=== PATIENT | male | born 1970 | race Caucasian/White ===

== ENCOUNTER 2023-11-29 07:37 | Emergency (ER) | payer OTHER ==
[~2023-11-29] VITALS: Ht 170.2 cm; Wt 60.5 kg
[~2023-11-29 07:37] MED LIST: NOR10T
[2023-11-29 07:38] VITALS: BP 123/74; RESP 20; O2SAT 99
[2023-11-29 07:51] LABS: Hematocrit 40.5 % (41.0-53.0); Hemoglobin 13.6 g/dL (13.5-17.5); Mean Corpuscular Hemoglobin 31.6 pg (28.0-32.0); Mean Corpuscular Hgb Conc. 33.6 g/dL (32.0-36.0); Mean Corpuscular Volume 93.9 fL (80.0-100.0); Red Blood Cells 4.31 10^6/uL (4.5-5.90); Red Cell Distribution Width 13.2 % (11.8-14.3); White Blood Cell 6.7 10^3/uL (4.4-10.8)
[2023-11-29 08:04] VITALS: PULSE 90
[2023-11-29 08:04] LABS: Blast Cells 0; Eosinophils % (manual) 0 (0-7); Metamyelocytes % 0; Myelocytes % 0; Promyelocytes % 0; Reactive Lymphocytes 0
[2023-11-29 08:08] LABS: INR 0.95 (0.9-1.15); Partial Thromboplastin Time 25.3 SEC (24.5-34.5)
[2023-11-29 08:46] LABS: Alanine Aminotransferase 93 U/L (7-40); Albumin 4.3 g/dL (3.2-4.8); Alkaline Phosphatase 58 U/L (46-116); Anion Gap 6 (5-15); Aspartate Aminotransferase 42 U/L (13-40); BUN/Creatinine Ratio 12.6 (10.0-20.0); Blood Urea Nitrogen 11 mg/dL (9-23); Calcium 9.2 mg/dL (8.7-10.4); Carbon Dioxide 26 mmol/L (20-30); Chloride 107 mmol/L (98-107); Glucose 104 mg/dL (74-106); Potassium 4.3 mmol/L (3.5-5.1); Sodium 139 mmol/L (136-145)
[2023-11-29 08:47] LABS: Bilirubin, Total 0.5 mg/dL (0.2-1.0); Total Protein 7.2 g/dL (5.7-8.2)
[2023-11-29 10:23] LABS: Band Neutrophils % (manual) 2; Basophils % (manual) 1 (0.0-2.0); Lymphocytes % (manual) 22 (10.0-50.0); Monocytes % (manual) 18 (0-12)
[2023-11-29 10:24] LABS: Platelet Estimate Adequate
[2023-11-29 11:13] LABS: Urine Epithelial Cast None Seen /hpf (<5)
[2023-11-29 11:44] LABS: Urine Bacteria NONE SEEN /hpf (None Seen); Urine Blood Negative /uL (Negative); Urine Clarity Clear (Clear); Urine Color Yellow (Yellow); Urine Mucus FEW (None Seen); Urine Protein, UAD Negative (Negative); Urine Specific Gravity 1.029 (1.001-1.035); Urine WBC 2 /hpf (0 - 3)
== END 2023-11-29 20:00 | disposition left against medical advice (07) ==
LOC: EDBD 07:37 → ER 07:37
DX: F12.10 Cannabis abuse, uncomplicated (principal); R06.00 Dyspnea, unspecified; J44.9 Chronic obstructive pulmonary disease, unspecified; F17.210 Nicotine dependence, cigarettes, uncomplicated
CPT/HCPCS: 36415; 80053; 81001; 84484; 85007; 85027; 85610; 85730; 93005

== ENCOUNTER 2024-04-23 12:36 | Emergency (ER) | payer OTHER ==
[~2024-04-23] VITALS: Ht 170.2 cm; Wt 61.4 kg
[2024-04-23 13:37] LABS: Basophils # (auto) 0.2 10 ^3/uL (0-0.2); Eosinophils # (auto) 0.2 10 ^3/uL (0-0.8); Eosinophils % (auto) 2.9 % (0.0-7.0); Hematocrit 45.4 % (41.0-53.0); Hemoglobin 15.8 g/dL (13.5-17.5); Lymphocytes # (auto) 1.4 10 ^3/uL (0.4-5.4); Lymphocytes % (auto) 25.8 % (10.0-50.0); Mean Corpuscular Hemoglobin 32.2 pg (28.0-32.0); Mean Corpuscular Hgb Conc. 34.8 g/dL (32.0-36.0); Mean Corpuscular Volume 92.6 fL (80.0-100.0); Monocytes # (auto) 0.9 10 ^3/uL (0-1.3); Monocytes % (auto) 15.7 % (0.0-12.0); Neutrophils # (auto) 2.9 10 ^3/uL (1.6-8.6); Neutrophils % (auto) 51.6 % (37.0-80.0); Nucleated Red Blood Cells % 0.1 %; Red Cell Distribution Width 13.7 % (11.8-14.3); White Blood Cell 5.6 10^3/uL (4.4-10.8)
[2024-04-23 13:45] LABS: Chloride 107 mmol/L (98-107); Potassium 3.7 mmol/L (3.5-5.1); Sodium 140 mmol/L (136-145)
[2024-04-23 13:46] LABS: Anion Gap 6 (5-15); Calcium 9.8 mg/dL (8.5-10.1); Carbon Dioxide 27 mmol/L (20-30)
[2024-04-23 13:49] LABS: Urine Bacteria None Seen /hpf (None Seen)
[2024-04-23 13:51] LABS: Glucose 106 mg/dL (74-106)
[2024-04-23 13:52] LABS: BUN/Creatinine Ratio 5.8 (10.0-20.0); Blood Urea Nitrogen 6 mg/dL (9-23)
[2024-04-23 14:01] LABS: Blood Alcohol 300.4 mg/dL (<10)
[2024-04-23 14:06] LABS: Urine Blood Negative /uL (Negative); Urine Clarity Clear (Clear); Urine Color Light-Yellow (Yellow); Urine Protein, UAD TRACE (Negative); Urine Specific Gravity 1.006 (1.001-1.035); Urine Urobilinogen Normal (Negative); Urine WBC 1 /hpf (0 - 3); Urine pH 5.5 (5.0-9.0)
[2024-04-23 14:13] LABS: Amphetamine Screen, Urine Neg (NEGATIVE); Barbiturate Scree,Urine Neg (NEGATIVE); Benzodiazephine Screen, Urine Neg (NEGATIVE); Cocaine Screen, Urine Neg (NEGATIVE); Opiate Scree,Urine Neg (NEGATIVE)
[2024-04-23 14:14] LABS: Phencyclidine Screen, Urine Neg (NEGATIVE)
[2024-04-23 14:15] LABS: Cannabinoid Screen, Urine Pos (NEGATIVE)
[2024-04-23] MEDS: THIAMINE 100mg/ml INJ (200mg/2ml VIAL) IV ONE (17:29)
[2024-04-23] MEDS: SODIUM CHLORIDE 0.9% 1,000 ML IV ONE (17:31)
[2024-04-23 17:32] VITALS: BP 137/87; TEMP 98.9
[2024-04-23 17:33] VITALS: PULSE 85; RESP 16; O2SAT 97
[2024-04-23] MEDS ORDERED: CLIN1CAP70 PO (17:41)
[2024-04-23] MEDS ORDERED: AMOX500T3 PO (17:41)
[2024-04-23] MEDS: cefTRIAXone 1GM/50ML D5W 50 ML IV ONE (17:53)
== END 2024-04-23 18:07 | disposition left against medical advice (07) ==
LOC: ER 12:53
DX: L03.115 Cellulitis of right lower limb (principal); F10.10 Alcohol abuse, uncomplicated; F17.210 Nicotine dependence, cigarettes, uncomplicated; F12.10 Cannabis abuse, uncomplicated; Z90.49 Acquired absence of other specified parts of digestive tract; J44.9 Chronic obstructive pulmonary disease, unspecified; Z88.5 Allergy status to narcotic agent; Y90.8 Blood alcohol level of 240 mg/100 ml or more
CPT/HCPCS: 36415; 80048; 80307; 80320; 81001; 85025; 93005; 96361; 96374; 96375; 99284; J0696; J3411; J7030; 96365